=== PATIENT | male | born 1995 | race Caucasian/White ===

== ENCOUNTER 2023-11-29 08:37 | Emergency (ER) | payer OTHER ==
[2023-11-29 08:44] VITALS: RESP 16
--- NOTE | 2023-11-29 08:51 | ED ---
Lower Extremity Injury HPI - General Chief Complaint: Extremity Injury, Lower Stated Complaint: rolled L ankle Time Seen by Provider: 11/29/23 08:49 Source: patient, RN notes reviewed Mode of arrival: ambulatory Limitations: no limitations - History of Present Illness Initial Comments: 28-year-old male presented to the ER with a chief complaint of a left ankle injury. Patient states this morning while stepping off of a 4 alcantar he accidentally inverted his ankle. He denies any other injuries. He is reporting most of his pain to his lateral foot and ankle. He has not taken anything for pain at this time. He states movement and weightbearing exacerbate pain. No other complaints at this time. - Related Data Home Medications Medication Instructions Recorded Confirmed No Known Home Medications 03/09/14 11/22/14 Allergies Allergy/AdvReac Type Severity Reaction Status Date / Time Penicillins Allergy Rash/Hives Verified 11/22/14 12:59 shellfish derived [Shellfish] Allergy Rash/Hives Verified 11/22/14 14:30 egg AdvReac Nausea & Verified 11/29/23 08:42 Vomiting & Diarrhea peanut AdvReac Nausea & Verified 11/29/23 08:42 Vomiting & Diarrhea Review of Systems ROS Statement: Those systems with pertinent positive or pertinent negative responses have been documented in the HPI. ROS Other: All systems not noted in ROS Statement are negative. Past Medical History Past Medical History: No Reported History History of Any Multi-Drug Resistant Organisms: None Reported Past Surgical History: No Surgical Hx Reported Past Psychological History: No Psychological Hx Reported Smoking Status: Never smoker Past Alcohol Use History: None Reported Past Drug Use History: None Reported General Exam Limitations: no limitations General appearance: alert, in no apparent distress Respiratory exam: Present: normal lung sounds bilaterally. Absent: respiratory distress, wheezes, rales, rhonchi, stridor Cardiovascular Exam: Present: regular rate, normal rhythm, normal heart sounds. Absent: systolic murmur, diastolic murmur, rubs, gallop, clicks Extremities exam: Present: tenderness (Base of the fifth metatarsal and lateral malleolus. There is edema present. No bruising, erythema, rash or wounds. 2+ left dorsalis pedis pulse. Sensation intact. Patient has limited range of motion due to pain.) Skin exam: Present: warm, dry, intact, normal color. Absent: rash Course Vital Signs 11/29/23 08:41 Temperature 98.0 F Pulse Rate 81 Respiratory 16 Rate Blood Pressure 128/87 O2 Sat by Pulse 97 Oximetry Medical Decision Making - Medical Decision Making Was pt. sent in by a medical professional or institution (, DENNIS, SENIOR MANAGING DIRECTOR, urgent care, hospital, or [facility]...) When possible be specific @ -No Did you speak to anyone other than the patient for history (EMS, parent, family, police, friend...)? What history was obtained from this source @ -No Did you review nursing and triage notes (agree or disagree)? Why? @ -I reviewed and agree with nursing and triage notes Were old charts reviewed (outside hosp., previous admission, EMS record, old EKG, old radiological studies, urgent care reports/EKG's, [facility] records)? Report findings @ -No old charts were reviewed Differential Diagnosis (chest pain, altered mental status, abdominal pain women, abdominal pain men, vaginal bleeding, weakness, fever, dyspnea, syncope, headache, dizziness, GI bleed, back pain, seizure, CVA, palpatations, mental health, musculoskeletal)? @ -Differential Musculoskeletal: Muscular strain, contusion, ligament sprain, fracture, arthritis, septic arthritis, bursitis, cellulitis, muscle spasm, nerve compression, DVT, arterial occlusion, herpes zoster, electrolyte abnormality, tumor.... This is not meant to be in all inclusive list EKG interpreted by me (3pts min.). @ -None X-rays interpreted by me (1pt min.). @ -Left ankle and foot x-rays interpreted by me negative for acute osseous process. CT interpreted by me (1pt min.). @ -None done U/S interpreted by me (1pt. min.). @ -None done What testing was considered but not performed or refused? (CT, X-rays, U/S, labs)? Why? @ -None What meds were considered but not given or refused? Why? @ -None Did you discuss the management of the patient with other professionals (professionals i.e. DENNIS Bustillos, SENIOR MANAGING DIRECTOR, lab, RT, psych nurse, clinical social worker, religious assistant, teacher, ecological technical officer, major case detective)? Give summary @ -No Was smoking cessation discussed for >3mins.? @ -No Was critical care preformed (if so, how long)? @ -No Were there social determinants of health that impacted care today? How? (Homelessness, low income, unemployed, alcoholism, drug addiction, transportation, low edu. Level, literacy, decrease access to med. care, group home, rehab)? @ -No Was there de-escalation of care discussed even if they declined (Discuss DNR or withdrawal of care, Hospice)? DNR status @ -No What co-morbidities impacted this encounter? (DM, HTN, Smoking, COPD, CAD, Cancer, CVA, ARF, Chemo, Hep., AIDS, mental health diagnosis, sleep apnea, morbid obesity)? @ -None Was patient admitted / discharged? Hospital course, mention meds given and route, prescriptions, significant lab abnormalities, going to OR and other pertinent info. @ -Discharge. 28-year-old male presented to the ER with a chief complaint of left ankle injury. History and physical exam completed. Vitals stable. Patient in no signs of acute distress and nontoxic-appearing. Left lower extremity neurovascular intact. There is mild edema to lateral ankle. Tenderness to proximal of fifth meta tarsal and lateral malleolus. No erythema, bruising, rashes or wounds present. X-rays were obtained to rule out osseous process. X-rays negative for acute process. Patient will be placed in an ankle stirrup. I advised [id number] Tylenol and Motrin for pain control. I also recommend ice, elevation, compression and rest. Weight-bear as tolerated. Strict return parameters discussed. Patient discharged in stable condition with follow-up to PCP. Patient verbally expressed understanding and agreement with care plan. Case discussed with ED attending, Dr. Olivares. Undiagnosed new problem with uncertain prognosis? @ -No Drug Therapy requiring intensive monitoring for toxicity (Heparin, Nitro, Insulin, Cardizem)? @ -No Were any procedures done? @ -No Diagnosis/symptom? @ -Ankle sprain Acute, or Chronic, or Acute on Chronic? @ -Acute Uncomplicated (without systemic symptoms) or Complicated (systemic symptoms)? @ -Uncomplicated Side effects of treatment? @ -No Exacerbation, Progression, or Severe Exacerbation? @ -No Poses a threat to life or bodily function? How? (Chest pain, USA, PA, pneumonia, PE, COPD, DKA, ARF, appy, cholecystitis, CVA, Diverticulitis, Homicidal, Suicidal, threat to staff... and all critical care pts) @ -No - Radiology Data Radiology results: report reviewed, image reviewed Disposition Clinical Impression: Ankle sprain Disposition: HOME SELF-CARE Condition: Stable Instructions (If sedation given, give patient instructions): Ankle Sprain (ED) Additional Instructions: You may take [id number] Tylenol and Motrin for pain control. Weight-bear as tolerated. Follow-up with PCP. Return to the ER for any new or worsening concerns. Is patient prescribed a controlled substance at d/c from ED?: No Referrals: John Paul Booth DO [Primary Care Provider] - 1-2 days Time of Disposition: 09:21
--- NOTE | 2023-11-29 09:16 | XR ---
EXAMINATION TYPE: XR ankle complete LT DATE OF EXAM: 11/29/2023 COMPARISON: NONE HISTORY: Pain TECHNIQUE: 3 views of the left ankle are submitted for evaluation. FINDINGS: There is no evidence for fracture or dislocation. Ankle mortise is intact. Soft tissues are within normal limits. IMPRESSION: 1. No evidence for acute fracture.
--- NOTE | 2023-11-29 09:17 | XR ---
EXAMINATION TYPE: XR foot complete LT DATE OF EXAM: 11/29/2023 CLINICAL HISTORY: pain TECHNIQUE: Frontal, lateral and oblique images of the left foot are obtained. COMPARISON: None. FINDINGS: There is no acute fracture/dislocation evident. The joint spaces appear within normal layton its. The overlying soft tissue appears unremarkable. IMPRESSION: There is no acute fracture or dislocation. ICD 10 NO FRACTURE, INITIAL EVALUATION
[2023-11-29 09:38] VITALS: BP 124/88; PULSE 80; TEMP 98
== END 2023-11-29 09:35 | disposition home or self-care (01) ==
LOC: EC 08:37
DX: S93.409A Sprain of unspecified ligament of unspecified ankle, initial encounter (principal); Z88.0 Allergy status to penicillin; Z91.013 Allergy to seafood; Z91.018 Allergy to other foods; X58.XXXA Exposure to other specified factors, initial encounter
CPT/HCPCS: 99283